=== PATIENT | female | born 1935 | race Asian ===

== ENCOUNTER 2021-03-28 20:05 | Inpatient (IN) | payer MEDICAID ==
[~2021-03-28] VITALS: Ht 149.9 cm; Wt 46.3 kg
--- NOTE | ~2021-03-28 | PROC ---
[facility] [address] [place] [address] PROCEDURE REPORT Name: LIANA WORLEY Room: [address] IN M.R.#: [id number] Admission: 03/29/21 Attend Phys: Catia Kaur Discharge: 04/05/21 Date of : [birth year] Report #: [id number] THIS REPORT FOR: cc: Oziel Serna MD, Srinath MD [facility],Medical Records Staff ~ For GI report, please see the Provation report in Perceptive 7 content. By: 0649Medical Records Staff MERLIN /LESLIE
[2021-03-28 20:10] VITALS: BP 78/37
[2021-03-28 21:15] LABS: CALCIUM 8.7 mg/dL (8.5-10.1); CREATININE 1.4 mg/dL (0.6-1.3); POTASSIUM 4.1 mmol/L (3.5-5.1)
[2021-03-28 21:19] LABS: ALBUMIN 2.1 g/dL (3.4-5.0); TOTAL BILIRUBIN 0.2 mg/dL (<0.1-1.0); TOTAL PROTEIN 7.1 g/dL (6.4-8.2)
[2021-03-28 21:22] LABS: ABSOLUTE EOSINOPHILS 0.9 thou/uL (0.0-0.7); ABSOLUTE LYMPHOCYTES 2.1 thou/uL (0.8-5.3); ABSOLUTE MONOCYTES 0.7 thou/uL (0.0-1.2); ABSOLUTE NEUTROPHILS 7.6 thou/uL (1.6-8.1); BASOPHILS 0.3 %; EOSINOPHILS 8.2 %; HEMATOCRIT 22.3 % (37.0-47.0); LYMPHOCYTES 18.6 %; MCH 20.2 pg (26.0-34.0); MCHC 30.4 g/dL (28.0-37.0); MCV 66.4 fL (80.0-100.0); MONOCYTES 5.8 %; MPV 7.2 fl. (7.2-11.1); NUCLEATED RBCS 0 /100WBC; POLYS 67.1 %; RBC 3.36 mil/uL (4.20-5.00); RDW-CV 19.6 % (10.5-14.5); WBC 11.3 thou/uL (4.0-11.0)
[2021-03-28 21:25] LABS: HEMOGLOBIN 6.8 gm/dL (12.0-15.0)
[2021-03-28 21:58] LABS: HYPOCHROMASIA 2+
[2021-03-28 21:59] LABS: ANISOCYTOSIS 2+; POLYCHROMASIA Occasional; TARGET CELLS Occasional
[2021-03-28 22:01] LABS: PLATELET ESTIMATE ADEQUATE
[2021-03-28 22:02] LABS: MICROCYTES 3+; PLATELET COUNT* 350 thou/uL (150-400)
[2021-03-28] MEDS ORDERED: ARTIFICIAL TEAR1510 OPHTHALMIC (22:37)
[2021-03-28] MEDS ORDERED: COZAAR 50 MG TA50 M1 PER TUBE (22:38)
[2021-03-28] MEDS ORDERED: ERTAPENEM1 GM IM (22:40)
[2021-03-28] MEDS ORDERED: CHILDREN'S15 MG/1 M2 PER TUBE (22:42)
[2021-03-28] MEDS ORDERED: VANACOF DM LIQ240 ML PER TUBE (22:45)
[2021-03-28] MEDS ORDERED: GLUCAGON EMERGEN1 MG IM (22:45)
[2021-03-28] MEDS ORDERED: HUMALOG100 UNIT/1 SUBQ (22:46)
[2021-03-28] MEDS ORDERED: IPRAT-ALBUT 0.5-3 ML INH (22:47)
[2021-03-28] MEDS ORDERED: JUVEN PACKET1 EAC1 PER TUBE (22:48)
[2021-03-28] MEDS ORDERED: KEPPRA100 MG/1 M PER TUBE (22:49)
[2021-03-28] MEDS ORDERED: ACIDOPHILUS1 EAC4 PER TUBE (22:50)
[2021-03-28] MEDS ORDERED: LEVEMIR100 UNIT/2 SUBQ (22:52)
[2021-03-28] MEDS ORDERED: ZYVOX600 MG/300 PER TUBE (22:53)
[2021-03-28] MEDS ORDERED: TOPROL XL25 MG PER TUBE (22:54)
[2021-03-28] MEDS ORDERED: LOVENOX40 MG/0.4 SUBQ (22:54)
[2021-03-28] MEDS ORDERED: MILK OF MA400 MG/5 M PER TUBE (22:55)
[2021-03-28] MEDS ORDERED: MILK OF MA400 MG/5 M PO (22:57)
[2021-03-28] MEDS ORDERED: SUPER THERAVIT1 EACH PER TUBE (22:57)
[2021-03-28] MEDS ORDERED: PEPCID40 MG PER TUBE (22:58)
[2021-03-28] MEDS ORDERED: REGLAN 5 MG TAB5 MG PER TUBE (22:59)
[2021-03-28] MEDS ORDERED: TRANSDERM-SCOP1 EACH TRANSDERM (23:00)
[2021-03-28] MEDS ORDERED: TYLENOL EXTRA500 M1 PER TUBE (23:02)
[2021-03-28] MEDS ORDERED: VITAMIN C500 M1 PER TUBE (23:03)
[2021-03-28] MEDS ORDERED: ACETAMINOPHEN325 MG PER TUBE (23:03)
[2021-03-29 00:15] LABS: URINE BILIRUBIN NEGATIVE (Negative); URINE BLOOD 1+ (Negative); URINE CLARITY CLEAR; URINE COLOR YELLOW; URINE GLUCOSE-RANDOM NEGATIVE (Negative); URINE KETONES NEGATIVE (Negative); URINE NITRITE-REFLEX NEGATIVE (Negative); URINE PROTEIN NEGATIVE (Negative); URINE UROBILINOGEN 0.2 E.U./dl (0.2-1.0)
[2021-03-29 00:22] LABS: URINE LEUKOCYTES-REFLEX 2+ (Negative)
[2021-03-29 01:54] LABS: CASTS None Seen /LPF (None Seen); SQUAMOUS 0-3 Few /LPF (0-3); URINE WBC-REFLEX >25 Many /HPF (0-5)
[2021-03-29 01:55] LABS: BACTERIA-REFLEX 1-9 Few /HPF (None Seen); CRYSTALS None Seen /LPF (None Seen); URINE RBC 3-10 Few /HPF (0-2); YEAST-REFLEX Present (None Seen)
[2021-03-29 04:58] LABS: HEMATOCRIT 23.5 % (37.0-47.0); HEMOGLOBIN 7.6 gm/dL (12.0-15.0)
[2021-03-29 07:33] VITALS: BP 83/42
[2021-03-29 09:27] LABS: CALCIUM 8.2 mg/dL (8.5-10.1); CREATININE 1.1 mg/dL (0.6-1.3); POTASSIUM 3.9 mmol/L (3.5-5.1)
--- NOTE | 2021-03-29 10:46 | EKG ---
[place] [address] ELECTROCARDIOGRAM REPORT Name: LIANA WORLEY Room: [place] [address] ADM IN [facility]#: [id number] Admission: 03/29/21 Attend Phys: Atif Kruse Discharge: Date of : [birth year] Date of Service: 03/28/212007 Report #: [id number] THIS REPORT FOR: //name// [facility] ED Test Date: 2021-03-28 Test Time: 20:08:18 Pat Name: LIANA WORLEY Department: Room: [facility] Gender: F Bilingual Executive Assistant: : 1935 Requested By: Verenice Jordan Order Number: [id number] MD: Gabriel Manuel Measurements Intervals [place] Rate: 113 P: VA: QRS: 32 QRSD: 87 T: 32 QT: 321 QTc: 441 Interpretive Statements Atrial fibrillation Baseline wander in lead(s) II,III,aVF No previous ECG available for comparison Electronically Signed On 03-29-2021 10:46:19 CDT by Gabriel Manuel [email or web address] <ELECTRONICALLY SIGNED> By: Gabriel Manuel MD, [facility] 03/29/21 1046 07 07 Gabriel Manuel MD, [facility] /EPI
[2021-03-29 11:00] VITALS: BP 97/46
[2021-03-29 14:20] VITALS: BP 106/58
--- NOTE | 2021-03-29 16:46 | 2DMMODE ---
[place] [address] 2 D/M-MODE ECHOCARDIOGRAM Name: LIANA WORLEY Room: [address] IN [facility]#: [id number] Admission: 03/29/21 Attend Phys: Atif Kruse Discharge: Date of : [birth year] Date of Service: 03/29/21 1645 Report #: [id number] THIS REPORT FOR: cc: Oziel Serna MD, Srinath MD Holkins,Gabriel De Guzman MD [facility] ~ APPROVED REPORT Study performed: 03/29/2021 10:57:13 EXAM: Comprehensive 2D, Doppler, and color-flow Echocardiogram Patient Location: In-Patient Room #: er Status: routine BSA: 1.42 HR: 75 bpm BP: 83/42 mmHg Rhythm: NSR Other Information Study Quality: Good Indications Non STEMI 2D Dimensions IVSd: 10.75 (7-11mm) LVOT Diam: 19.54 (18-24mm) LVDd: 43.06 mm PWd: 9.03 (7-11mm) Ascending Ao: 39.69 (22-36mm) LVDs: 29.21 (25-40mm) Aortic Root: 30.46 mm Volumes Left Atrial Volume (Systole) LA ESV Index: 33.40 mL/m2 Aortic Valve AoV Peak Pérez.: 1.88 m/s AO Peak Gr.: 14.11 mmHg LVOT Max P.18 mmHg AO Mean Gr.: 7.53 mmHg LVOT Mean P.71 mmHg LVOT Max V: 0.89 m/s AO V2 VTI: 34.19 cm LVOT Mean V: 0.61 m/s JAZMIN (VTI): 1.57 cm2 LVOT V1 VTI: 17.85 cm AI [place]: 2.11 m/s2 [place] [address] 2 D/M-MODE ECHOCARDIOGRAM Name: LIANA WORLEY Room: [place] [address] ADM IN .R.#: [id number] Admission: 03/29/21 Attend Phys: Atif Kruse Discharge: Date of : [birth year] Date of Service: 03/29/21 1645 Report #: [id number] AI PHT: 526.52 ms Mitral Valve E/A Ratio: 0.60 MV Decel. Time: 263.14 ms MV E Max Pérez.: 0.55 m/s MV PHT: 76.31 ms MVA (PHT): 2.88 cm2 TDI E/Lateral E': 7.86 E/Medial E': 11.00 Medial E' Pérez.: 0.05 m/s Lateral E' Pérez.: 0.07 m/s Pulmonary Valve PV Peak Pérez.: 1.02 m/s PV Peak Gr.: 4.17 mmHg Tricuspid Valve RAP Estimate: 5.00 mmHg TR Peak Gr.: 33.75 mmHg RVSP: 38.00 mmHg PA Pressure: 387.00 mmHg Left Ventricle The left ventricle is normal size. There is normal LV segmental wall motion. Borderline concentric left ventricular hypertrophy. Left ventricular systolic function is normal. The left ventricular ejection fraction is within the normal range. LVEF is 55-60%. Grade I - abnormal relaxation pattern. Right Ventricle The right ventricle is normal size. The right ventricular systolic function is normal. Atria The left atrium size is normal. The right atrium size is normal. Aortic Valve Mild aortic valve sclerosis. Mild aortic regurgitation. No hemodynamically significant valvular aortic stenosis. Mitral Valve The mitral valve is normal in structure. Trace mitral regurgitation. No evidence of mitral valve stenosis. [place] [address] 2 D/M-MODE ECHOCARDIOGRAM Name: LIANA WORLEY Room: [address] IN [facility]#: [id number] Admission: 03/29/21 Attend Phys: Atif Kruse Discharge: Date of : [birth year] Date of Service: 03/29/21 1645 Report #: [id number] The tricuspid valve is normal in structure. Mild tricuspid regurgitation. Mild pulmonary hypertension. Pulmonic Valve The pulmonary valve is normal in structure. Trace pulmonic regurgitation. Great Vessels The aortic root is normal in size. IVC is normal in size and collapses >50% with inspiration. Pericardium There is no pericardial effusion. <Conclusion> The left ventricle is normal size. Borderline concentric left ventricular hypertrophy. Left ventricular systolic function is normal. The left ventricular ejection fraction is within the normal range. LVEF is 55-60%. Grade I - abnormal relaxation pattern. The right ventricle is normal size. The left atrium size is normal. Mild aortic valve sclerosis Mild aortic insufficiency. No hemodynamically significant valvular aortic stenosis. The mitral valve is normal in structure. The tricuspid valve is normal in structure. Mild tricuspid regurgitation. Mild pulmonary hypertension. There is no pericardial effusion. There is normal LV segmental wall motion. <ELECTRONICALLY SIGNED> By: Gabriel Manuel MD, [facility] 03/29/21 1645 44 44 Gabriel Manuel MD, [facility] /INF
[2021-03-29 18:56] LABS: CALCIUM 8.2 mg/dL (8.5-10.1); CREATININE 1.1 mg/dL (0.6-1.3)
[2021-03-30] VITALS: BP 109/53
[2021-03-30 04:00] VITALS: BP 110/52
[2021-03-30 08:00] VITALS: BP 125/59
[2021-03-30 08:40] LABS: HEMOGLOBIN 7.2 gm/dL (12.0-15.0); MPV 6.9 fl. (7.2-11.1); NUCLEATED RBCS 0 /100WBC; WBC 6.7 thou/uL (4.0-11.0)
[2021-03-30 08:45] LABS: MCH 22.1 pg (26.0-34.0); MCHC 31.3 g/dL (28.0-37.0); MCV 70.8 fL (80.0-100.0); PLATELET COUNT* 315 thou/uL (150-400); RBC 3.24 mil/uL (4.20-5.00); RDW-CV 22.2 % (10.5-14.5)
[2021-03-30 08:48] LABS: PROTIME 10.5 Seconds (9.20-11.50)
[2021-03-30 08:51] LABS: ALBUMIN 1.9 g/dL (3.4-5.0); CALCIUM 7.7 mg/dL (8.5-10.1); CREATININE 0.9 mg/dL (0.6-1.3); MAGNESIUM 2.7 mg/dL (1.8-2.4); POTASSIUM 3.7 mmol/L (3.5-5.1); TOTAL BILIRUBIN 0.3 mg/dL (<0.1-1.0)
[2021-03-30 09:50] LABS: ESR (SEDRATE) 63 mm/hr (0-30)
[2021-03-30 10:05] LABS: ABSOLUTE BASOPHILS 0.1 thou/uL (0.0-0.2); ABSOLUTE EOSINOPHILS 0.6 thou/uL (0.0-0.7); ABSOLUTE LYMPHOCYTES 1.6 thou/uL (0.8-5.3); ABSOLUTE NEUTROPHILS 4.4 thou/uL (1.6-8.1); ANISOCYTOSIS 3+; ATYPICAL LYMPHS 2 %; HYPOCHROMASIA 2+; MICROCYTES 2+; PLATELET ESTIMATE ADEQUATE
[2021-03-30 11:53] VITALS: BP 93/47
[2021-03-30 14:27] LABS: CALCIUM 7.6 mg/dL (8.5-10.1); CREATININE 0.9 mg/dL (0.6-1.3); POTASSIUM 3.5 mmol/L (3.5-5.1)
--- NOTE | 2021-03-30 15:25 | NUR ---
WOUND NURSE: PATIENT SEEN TODAY AFTER PATIENT HAD BEEN SEEN BY SURGERY WHO PERFORMED A SURGICAL DEBRIDEMENT OF THE WOUND. PATIENT IS NONCOMMUNICATIVE AND HAS TRACH AND FEEDING TUBE. PER BOX BUILDER, KIANNA DAUGHTER ASSUMES RESPONSIBILTIY FOR PATIENT'S DECISIONS. CURRENTLY PATIENT PRESENTS WITH A STAGE 4 PRESSURE INJURY WITH EXPOSED CARTILAGINOUS TISSUE IN THE BASE OF THE WOUND BED. THERE IS ALSO DARK RED, NONGRANULATING ALSO IN THE WOUND BED. PERIWUND WITH SHALLOW EROSIONS AND MAROON NONBLANCHEABLE TISSUE. POST DEBRIDEMENT PHOTOGRAPH TAKEN, THEN WOUND DRESSED PRESCRIBED. MEASUREMENT INCLUDES THE PERIWOUND EROSIONS PRESENT. MEASUREMENTS WERE 6.0 X 9.5 X 2.0 CM AND WITH UNDERMINING FROM 7 TO 2 O'CLOCK AND MEASURES 2.0 CM.
[2021-03-30 16:32] VITALS: BP 106/45
[2021-03-31] VITALS: BP 103/48
[2021-03-31 04:00] VITALS: BP 114/56
[2021-03-31 07:10] LABS: HEMATOCRIT 21.5 % (37.0-47.0); MCH 22.1 pg (26.0-34.0); MCHC 31.2 g/dL (28.0-37.0); MCV 70.7 fL (80.0-100.0); MPV 7.2 fl. (7.2-11.1); RBC 3.05 mil/uL (4.20-5.00); RDW-CV 22.8 % (10.5-14.5); WBC 6.8 thou/uL (4.0-11.0)
[2021-03-31 07:11] LABS: HEMOGLOBIN 6.7 gm/dL (12.0-15.0)
[2021-03-31 07:29] LABS: ALBUMIN 1.8 g/dL (3.4-5.0); CALCIUM 7.5 mg/dL (8.5-10.1); CREATININE 0.8 mg/dL (0.6-1.3); MAGNESIUM 2.3 mg/dL (1.8-2.4); POTASSIUM 3.1 mmol/L (3.5-5.1); TOTAL BILIRUBIN 0.3 mg/dL (<0.1-1.0); TOTAL PROTEIN 5.7 g/dL (6.4-8.2)
[2021-03-31 08:42] VITALS: BP 105/45
--- NOTE | 2021-03-31 14:36 | EKG ---
[place] [address] ELECTROCARDIOGRAM REPORT Name: BRUNILDALIANA Room: [address] ADM IN .R.#: [id number] Admission: 03/29/21 Attend Phys: Atif Kruse Discharge: Date of : [birth year] Date of Service: 03/31/21 1025 Report #: [id number] THIS REPORT FOR: //name// [facility] Test Date: 2021-03-31 Test Time: 10:25:12 Pat Name: LIANA WORLEY Department: Room: [facility] Gender: F Retail Greeting Card Merchandiser: : 1935 Requested By: Preethi Rebolledo Order Number: [id number] Reading MD: Ben Lund Measurements Intervals [place] Rate: 74 P: 26 MD: 162 QRS: -6 QRSD: 98 T: 37 QT: 400 QTc: 444 Interpretive Statements Sinus rhythm low voltage Atrial premature complex Inferior infarct, old Compared to ECG 03/28/2021 20:08:18 Atrial fibrillation no longer present Electronically Signed On 03-31-2021 14:36:30 CDT by Ben Lund [email or web address] <ELECTRONICALLY SIGNED> By: Ben Lund MD, [facility] 03/31/21 1436 1025 1025 Ben Lund MD, [facility] /EPI
[2021-03-31 15:50] VITALS: BP 116/62; BP 127/57; BP 127/60; BP 134/76
--- NOTE | 2021-03-31 19:03 | NUR ---
PATIENT HAS REMAINED NONVERBAL THIS SHIFT. PATIENT SUCTIONED ORDERED; MEDICATIONS ADMINISTERED ORDERED, WELL 1 UNIT OF PRBCS INFUSED. H&H DUE TO BE CHECKED AT 1999. PATIENT HAS SLEPT MOST OF SHIFT, NO S/S OF DISTRESS/PAIN NOTED. RESPIRATIONS EVEN AND UNLABORED. VSS. CALL LIGHT WITHIN REACH.
[2021-03-31 20:04] LABS: HEMATOCRIT 28.3 % (37.0-47.0)
[2021-03-31 20:05] LABS: HEMOGLOBIN 9.2 gm/dL (12.0-15.0)
[2021-03-31 20:15] VITALS: BP 113/60
[2021-04-01 04:15] LABS: ABSOLUTE EOSINOPHILS 0.5 thou/uL (0.0-0.7); ABSOLUTE LYMPHOCYTES 1.6 thou/uL (0.8-5.3); ABSOLUTE MONOCYTES 0.4 thou/uL (0.0-1.2); ABSOLUTE NEUTROPHILS 5.3 thou/uL (1.6-8.1); BASOPHILS 0.2 %; EOSINOPHILS 6.2 %; HEMATOCRIT 26.6 % (37.0-47.0); HEMOGLOBIN 8.7 gm/dL (12.0-15.0); LYMPHOCYTES 20.8 %; MCH 23.4 pg (26.0-34.0); MCHC 32.8 g/dL (28.0-37.0); MCV 71.3 fL (80.0-100.0); MONOCYTES 5.6 %; MPV 6.7 fl. (7.2-11.1); NUCLEATED RBCS 0 /100WBC; PLATELET COUNT* 253 thou/uL (150-400); POLYS 67.2 %; RBC 3.73 mil/uL (4.20-5.00); RDW-CV 20.8 % (10.5-14.5); WBC 7.8 thou/uL (4.0-11.0)
[2021-04-01 04:24] LABS: ALBUMIN 1.6 g/dL (3.4-5.0); CALCIUM 7.3 mg/dL (8.5-10.1); CREATININE 0.6 mg/dL (0.6-1.3); POTASSIUM 3.6 mmol/L (3.5-5.1); TOTAL BILIRUBIN 0.5 mg/dL (<0.1-1.0); TOTAL PROTEIN 5.4 g/dL (6.4-8.2)
[2021-04-01 07:45] VITALS: BP 126/59
[2021-04-01 12:00] VITALS: BP 129/67
[2021-04-01 17:51] VITALS: BP 139/68
--- NOTE | 2021-04-01 18:46 | NUR ---
Pt status is unchanged. Needing prequent suctioning. Respiratory therapy notified and will be modifiying trach to allen configuration. Daughter was present and attentive for first half of day. Pt comfort or wishes impossible to determine.
[2021-04-01 20:15] VITALS: BP 145/71
[2021-04-02] VITALS: BP 151/80
[2021-04-02 04:01] VITALS: BP 144/73
[2021-04-02 07:22] LABS: ABSOLUTE EOSINOPHILS 0.4 thou/uL (0.0-0.7); ABSOLUTE LYMPHOCYTES 1.6 thou/uL (0.8-5.3); ABSOLUTE MONOCYTES 0.4 thou/uL (0.0-1.2); ABSOLUTE NEUTROPHILS 4.1 thou/uL (1.6-8.1); BASOPHILS 0.4 %; HEMATOCRIT 28.9 % (37.0-47.0); HEMOGLOBIN 9.3 gm/dL (12.0-15.0); LYMPHOCYTES 24.4 %; MCH 23.2 pg (26.0-34.0); MCHC 32.2 g/dL (28.0-37.0); MCV 72.1 fL (80.0-100.0); MONOCYTES 6.7 %; MPV 7.1 fl. (7.2-11.1); NUCLEATED RBCS 0 /100WBC; PLATELET COUNT* 260 thou/uL (150-400); POLYS 62.5 %; RBC 4.01 mil/uL (4.20-5.00); RDW-CV 22.1 % (10.5-14.5); WBC 6.6 thou/uL (4.0-11.0)
[2021-04-02 07:32] LABS: ALBUMIN 1.6 g/dL (3.4-5.0); CALCIUM 7.4 mg/dL (8.5-10.1); CREATININE 0.7 mg/dL (0.6-1.3); TOTAL BILIRUBIN 0.4 mg/dL (<0.1-1.0); TOTAL PROTEIN 5.6 g/dL (6.4-8.2)
[2021-04-02 07:49] LABS: POTASSIUM 2.9 mmol/L (3.5-5.1)
[2021-04-02 12:00] VITALS: BP 117/51
[2021-04-02 16:00] VITALS: BP 113/56
--- NOTE | 2021-04-02 17:17 | NUR ---
PT IS UNRESPONSIVE. IN-LINE SUCTION CATHETER IS WORKING ADEQUATELY. NO VISITORS. DRESSING CHANGED ON SACRAL DECUBITUS WITH SURGEON.
[2021-04-02 20:00] VITALS: BP 138/81
[2021-04-03] VITALS: BP 143/81
[2021-04-03 04:45] VITALS: BP 136/74
--- NOTE | 2021-04-03 05:47 | NUR ---
ASSUMED PT CARE AT APPROX 1930. PT OPENS EYES WHEN NAME IS CALLED, NON VERBAL. PT IS NOT IN DISTRESS. TRACHEOSTOMY INTACT WITH 20L OF O2 VIA HEATED HIGFLOW. SECRETIONS SUCTIONED NEEDED,TRACHEOSTOMY CARE DONE. PT HAS MULTIPLE INCONTINENT BOWEL MOVEMENTS, PT IS KEPT CLEAN AND DRY, POSTION CHAGES DONE. WOUND CARE DONE. PT IS KEPT CLOSELY MONITORED.
[2021-04-03 07:39] LABS: ABSOLUTE EOSINOPHILS 0.4 thou/uL (0.0-0.7); RBC 3.84 mil/uL (4.20-5.00); WBC 5.6 thou/uL (4.0-11.0)
[2021-04-03 07:41] LABS: ABSOLUTE LYMPHOCYTES 1.6 thou/uL (0.8-5.3); ABSOLUTE MONOCYTES 0.5 thou/uL (0.0-1.2); ABSOLUTE NEUTROPHILS 3.2 thou/uL (1.6-8.1); BASOPHILS 0.3 %; EOSINOPHILS 6.7 %; HEMATOCRIT 28.2 % (37.0-47.0); HEMOGLOBIN 8.7 gm/dL (12.0-15.0); LYMPHOCYTES 27.9 %; MCH 22.8 pg (26.0-34.0); MCV 73.3 fL (80.0-100.0); MONOCYTES 8.4 %; MPV 6.8 fl. (7.2-11.1); NUCLEATED RBCS 0 /100WBC; PLATELET COUNT* 251 thou/uL (150-400); POLYS 56.7 %; RDW-CV 22.8 % (10.5-14.5)
[2021-04-03 07:52] LABS: ALBUMIN 1.5 g/dL (3.4-5.0); CALCIUM 7.3 mg/dL (8.5-10.1); CREATININE 0.6 mg/dL (0.6-1.3); POTASSIUM 3.2 mmol/L (3.5-5.1); TOTAL BILIRUBIN 0.4 mg/dL (<0.1-1.0); TOTAL PROTEIN 5.2 g/dL (6.4-8.2)
[2021-04-03 09:15] VITALS: BP 133/61
--- NOTE | 2021-04-03 09:33 | NUR ---
CM ASSESSMENT: REVIEW OF PT'S CHART INFORMS THAT THE PT CURRENTLY RESIDES AT [facility]. PT IS NON-VERBAL PER NURSING AND CHART REVIEW. ADMISSIONS WITH [facility] CONFIRMS THAT THE PT RESIDES THERE IN LTC. PT'S DTR ALSO CONFIRMS THIS WELL HER DESIRE FOR THE PT TO RETURN TO [facility] AT D/C. PT WILL NEED A RAPID COVID TEST PRIOR TO D/C TO RETURN TO [facility]. CM WILL REMAIN AVAILABLE TO ASSIST AND FOLLOW NEEDED. [facility] PHONE: [phone] FAX: [phone]
--- NOTE | 2021-04-03 14:04 | NUR ---
PLAN OF CARE: PHYSICIAN INFORMS OF PLAN FOR THE PT TO POSSIBLY D/C TOMORROW BACK TO LTC AT [facility]. CM CALLED AND LEFT A VOICEMAIL WITH ADMISSIONS AT [facility] TO INFORM OF THIS PLAN. CM TO ALSO FAX [facility] A CLINICAL UPDATE FOR THE PT. CM WILL REMAIN AVAILABLE TO ASSIST AND FOLLOW NEEDED.
[2021-04-03 16:00] VITALS: BP 149/73
[2021-04-04 00:12] VITALS: BP 141/75
[2021-04-04 04:36] VITALS: BP 117/66
[2021-04-04 07:25] VITALS: BP 128/60
[2021-04-04 07:30] VITALS: BP 128/60
--- NOTE | 2021-04-04 08:32 | NUR ---
PATIENT RESTING THROUGHOUT THE NIGHT WITH DAUGHTER AT BEDSIDE. VSS ON 20L 02 ON HEATED HIGH FLOW. TRACHEOSTOMY TUBE MIDLINE AND SUCTIONED NEEDED. MEDICATIONS GIVEN VIA PEGTUBE AND FLUSHED. RIGHT IJ- D5W @ 100ML/HR. DSOUZA TO DEPENDENT DRAINAGE WITH YELLOW URINE OUTPUT. NEW DRESSING TO COCCYX AREA APPLIED. PATIENT TURNED EVERY 2 HRS AND NEEDED. WILL CONTINUE WITH PLAN OF CARE AND NURSING TO MONITOR.
[2021-04-04] MEDS ORDERED: FLECAINIDE ACET50 M1 PO (11:13)
[2021-04-04] MEDS ORDERED: FLAGYL500 M1 PO (11:13)
[2021-04-04 12:00] VITALS: BP 138/73
--- NOTE | 2021-04-04 12:47 | NUR ---
WOUND NURSE: PATIENT SEEN FOR FOLLOW UP ASSESSMENT PERTAINING TO SACRAL WOUND. WOUND MEASUREMENTS HAVE INCREASED TO 7.5 X 9.5 X 2.5 CM AND WITH UNDERMINING OF 2.0 CM FROM 7 TO 2 O'CLOCK. REMAINS WITH RED NONGRANULATING TISSUE IN THE WOUND BED AND CREAM COLORED FIBROUS TISSUE EXPOSED ALSO. THIS WOUND PROBES TO BONE. CONTAINS SEROUSANGUINOUS DRAINAGE ON THE OLD DRESSING. PATIENT IS INCONTINENT OF LIQUID STOOL AND STOOL HAS BEEN CONTAMINATING THE WOUND BED -- X 2 DURING THIS DRESSING CHANGE. SPOKE WITH PHYSICIAN ON SURGERY TEAM AND HAVE OPTED TO TRY WOUND VAC DRESSING TO HELP PREVENT CONTAMINATION AND TO PROMOTE HEALING. PATIENT IS ON ABX THERAPY. WOUND VAC DRESSING WAS APPLIED PRESCRIBED. ALSO USED SKIN PREP AND OSTOMY PASTE TO ENHANCE THE SEAL. THE DRESSING WAS BRIDGED TO THE RIGHT THIGH. SETTINGS ARE 150MMHG CONTINUOUS NEGATIVE PRESSURE INTENSITY HIGH.
--- NOTE | 2021-04-04 14:09 | NUR ---
Nutrition: Recommend Glucerna 1.2 @ total of 5 cans per day. Bolus 1 can in AM, 2 at lunch, 2 at dinner. 100mL free water before and after each bolus feed for a total of 600mL free water per day. See RD Assessment Form for details.
--- NOTE | 2021-04-04 14:59 | NUR ---
PLAN OF CARE: PHYSICIAN INFORMS OF PLAN FOR PT TO D/C BACK TO HER LTC TOMORROW. PT TO HAVE PICC LINE PLACED TODAY. CM FAXED [facility] UPDATED CLINICAL CLINCIAL INFO AND INFORMED THEM OF PLAN FOR PT TO D/C TOMORROW. CM WILL REMAIN AVAILABLE TO ASSIST AND FOLLOW NEEDED.
[2021-04-04 16:00] VITALS: BP 157/62
--- NOTE | 2021-04-04 16:04 | NUR ---
PT REMAINED ALERT. O2 HEATED HIGH FLOW. Q4 SUCTIONING, Q2 TURNS. INNER CANNULA CHANGED THIS SHIFT. WOUND VAC PLACED. MANAGER NICU SAW PATIENT AND ORDERED TUBE FEEDING PEG TUBE IN PLACE AND PATENT. PICC PLACEMENT TODAY. FALL RISK PRECAUTIONS IN PLACE. HOURLY ROUNDING COMPLETED. CALL LIGHT WITHIN REACH.
[2021-04-05 00:41] VITALS: BP 128/64
[2021-04-05 04:20] VITALS: BP 115/66
[2021-04-05 08:46] VITALS: BP 128/69
[2021-04-05 11:00] VITALS: BP 113/38
--- NOTE | 2021-04-05 15:01 | NUR ---
WOUND NURSE: PATIENT DISCHARGING BACK TO [facility]. REMOVED WOUND VAC DRESSING AND PLACED AN ALTERNATE DRESSING PRESCRIBED. CLEANSED WITH SOAP AND WATER, RINSED, THEN PATTED DRY. APPLIED AQUACEL AG, THEN COVERED WITH ABD, THEN SECURED WITH ELASTIFOAM TAPE.
[2021-04-05 15:26] VITALS: BP 119/73
--- NOTE | 2021-04-05 17:29 | NUR ---
Report called to Alyson at [facility]. Pt discharged from unit per EMS. Pt has PICC in place to SAMANTHA. data architect manager deshawn.
== END 2021-04-05 17:10 | DRG 579 ==
LOC: M.ERS 20:05 → M.TBA-ER 03-29 03:03 → M.2W 03-29 18:11
PROVIDERS: Internal Medicine; Internal Medicine Gastroenterology; Personal Emergency Response Attendant; ADMIT Internal Medicine; ATTEND Internal Medicine
PROC: B548ZZA Ultrasonography of Superior Vena Cava, Guidance (ICD-10-PCS; principal; 2021-03-29)
PROC: 02HV33Z Insertion of Infusion Device into Superior Vena Cava, Percutaneous Approach (ICD-10-PCS; principal; 2021-03-29)
PROC: 30233N1 Transfusion of Nonautologous Red Blood Cells into Peripheral Vein, Percutaneous Approach (ICD-10-PCS; principal; 2021-03-29)
PROC: 0KBN0ZZ Excision of Right Hip Muscle, Open Approach (ICD-10-PCS; 2021-03-30)
PROC: 5A0935A Assistance with Respiratory Ventilation, Less than 24 Consecutive Hours, High Flow/Velocity Cannula (ICD-10-PCS; 2021-03-30)
PROC: 0KBP0ZZ Excision of Left Hip Muscle, Open Approach (ICD-10-PCS; 2021-03-30)
PROC: 0DH68UZ Insertion of Feeding Device into Stomach, Via Natural or Artificial Opening Endoscopic (ICD-10-PCS; 2021-03-31)
PROC: 0DP6XUZ Removal of Feeding Device from Stomach, External Approach (ICD-10-PCS; 2021-03-31)
PROC: 5A0935A Assistance with Respiratory Ventilation, Less than 24 Consecutive Hours, High Flow/Velocity Cannula (ICD-10-PCS; 2021-04-03)
PROC: 5A0935A Assistance with Respiratory Ventilation, Less than 24 Consecutive Hours, High Flow/Velocity Cannula (ICD-10-PCS; 2021-04-04)
PROC: 02HV33Z Insertion of Infusion Device into Superior Vena Cava, Percutaneous Approach (ICD-10-PCS; 2021-04-05)
PROC: B5181ZA Fluoroscopy of Superior Vena Cava using Low Osmolar Contrast, Guidance (ICD-10-PCS; 2021-04-05)
PROC: B548ZZA Ultrasonography of Superior Vena Cava, Guidance (ICD-10-PCS; 2021-04-05)
DX: L89.154 Pressure ulcer of sacral region, stage 4 (principal); I21.4 Non-ST elevation (NSTEMI) myocardial infarction; J15.6 Pneumonia due to other Gram-negative bacteria; J69.0 Pneumonitis due to inhalation of food and vomit; K92.2 Gastrointestinal hemorrhage, unspecified; E87.0 Hyperosmolality and hypernatremia; N17.9 Acute kidney failure, unspecified; B37.89 Other sites of candidiasis; D64.9 Anemia, unspecified; I48.0 Paroxysmal atrial fibrillation; I95.9 Hypotension, unspecified; R73.9 Hyperglycemia, unspecified; S30.811A Abrasion of abdominal wall, initial encounter; R91.8 Other nonspecific abnormal finding of lung field; E86.0 Dehydration; K62.89 Other specified diseases of anus and rectum; K44.9 Diaphragmatic hernia without obstruction or gangrene; K22.2 Esophageal obstruction; Z20.822 Contact with and (suspected) exposure to COVID-19; Z93.0 Tracheostomy status; Z86.73 Personal history of transient ischemic attack (TIA), and cerebral infarction without residual deficits; Z79.899 Other long term (current) drug therapy